=== PATIENT | male | born 1960 | race Caucasian/White ===

== ENCOUNTER 2016-04-05 16:08 | Emergency (ER) | payer MEDICARE, MEDICAID ==
[2016-04-05 16:47] VITALS: BP 133/62
[2016-04-05] MEDS ORDERED: NS 0.9% 1000 ML* 1,000 ML IV ONE (17:29)
--- NOTE | 2016-04-05 19:38 | UC ---
mahendra Mason Timothy, scribed for Mary Griffiths MD on 04/05/16 at 1706 . Abdominal Pain Male HPI - HPI Summary HPI Summary: Chalo Pack is a 55 yo male presenting to [facility] with 10/10 sharp RLQ pain for the past 8 hours with loose stool per [facility] evaluation. He denies N/V , fever, or any other Sx. He denies any medical Hx. - History of Current Complaint Chief Complaint: UCAbdominalPain Stated Complaint: ABDOMINAL PAIN Time Seen by Provider: 04/05/16 17:04 Hx Obtained From: Patient Hx From Patient Unobtainable Due To: Other - limited Hx due to Pt disability Onset/Duration: Sudden Onset, Lasting Hours, Still Present Timing: Constant Severity Initially: Moderate Severity Currently: Moderate Pain Intensity: 8 Pain Scale Used: 0-10 Numeric Location: Discrete At: RLQ Radiates: No Character: Aching Aggravating Factor(s):: Nothing Alleviating Factor(s): Nothing Associated Signs And Symptoms: Positive: Diarrhea. 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 Previously Healthy: No - mentallly handicapped, resident of long-term - Surgical History Surgical History: Yes Surgery Procedure, Year, and Place: cornea transplant - Family History Known Family History: Positive: Unknown - Pt is mentally handicapped and [facility] [employer] lacks FHx. - Social History Occupation: Disabled Lives: Snf Alcohol Use: None Substance Use Type: None Smoking Status (MU): Never Smoked Tobacco Review of Systems Constitutional: Negative Skin: Negative Eyes: Negative ENT: Negative Respiratory: Negative Cardiovascular: Negative Gastrointestinal: Abdominal Pain, Diarrhea Genitourinary: Negative Motor: Negative Neurovascular: Negative Musculoskeletal: Negative Neurological: Negative Psychological: Negative All Other Systems Reviewed And Are Negative: Yes Physical Exam Triage Information Reviewed: Yes Appearance: Well-Appearing, Well-Nourished, Pain Distress - mild Vital Signs: Initial Vital Signs Temp 99.7 F 04/05/16 16:39 Pulse 88 04/05/16 16:39 Resp 20 04/05/16 16:39 BP 133/62 04/05/16 16:39 Pulse Ox 98 04/05/16 16:39 Vital Signs Reviewed: Yes Eyes: Positive: Other: - opaque cornea left. Negative: Discharge ENT: Positive: Hearing grossly normal. Negative: Muffled/hoarse voice Neck: Positive: Supple, Nontender Respiratory: Positive: Lungs clear, Normal breath sounds, No respiratory distress Cardiovascular: Positive: RRR, No Murmur, Pulses Normal, Brisk Capillary Refill Abdomen Description: Positive: No Organomegaly, Soft, Guarding, McBurney's Point Tenderness, Other: - Genital test normal: circumcised, scrotum non-tender , testes are descended. There is an umbilical scar possibly indicating a Hx of umbilical hernia.. Negative: Nontender - RLQ tenderness to palpation, CVA Tenderness (R), CVA Tenderness (L), Distended, Hepatomegaly, Peritoneal Signs, Pulsatile Mass, Splenomegaly Bowel Sounds: Positive: Present Musculoskeletal: Positive: Strength Intact, ROM Intact Neurological: Positive: Alert, Muscle Tone Normal Psychological Exam: Other - Mental disability Skin Exam: Normal Re-Evaluation - Re-Evaluation First Eval Re-Evaluation Time: 17:32 Change: Unchanged Comment: Pt and associate medical director were informed that ambulance will be arriving shortly. Abd Pain Male Course/Dx - Course Course Of Treatment: Chalo Warren is a 55 yo male presnting to [facility] with 10 /10 RLQ abd pain for the past 8 hours. He also has had loose stool per the [facility] [employer] cash [employer], Max, accompanying him. After clinical evaluation, he will be transferred to [facility] by ambulance for further evaluation and treatment. UA results: Color: brown. Character: cloudy. Odor: foul. Bilirubin: negative. Urobilinogen: normal. Ketones: 300mg/dL. Ascorbic Acid: 20mg/dL. Glucose: negative. Protein: 30mg/dL. Blood: negative. pH: 5. Nitrite: negative. Leukocytes: normal. Specific [place]: 1.035 - Differential Dx/Clinical Impression Differential Diagnosis/HQI/PQRI: Appendicitis, Bowel Obstruction, Diverticulitis , Hepatitis, Pancreatitis, Ureteral Stone, Urinary Tract Infection Provider Diagnoses: RLQ abdominal pain. mentally handicapped - Physician Notification/Consults Discussed Patient Care With: 1725 - Rose Marie MONTEMAYOR (emergency medicine) - Discussed Pt condition, MD will see in ED. 172 - [facility] - Described Pt condition, request ambulance for transport to [facility] Instructed by Provider To: MD Will See In ED Discharge - Discharge Plan Condition: Stable Disposition: TRANS HIGHER LVL OF CARE FAC Discharge Disposition Comment: transported to [facility] by ambulance for further evaluation and care Referrals: [facility] [Outside] The documentation as recorded by the mahendra ramírez Timothy accurately reflects the service I personally performed and the decisions made by me, Mary Griffiths MD.
== END 2016-04-05 18:00 | disposition short-term general hospital (02) ==
LOC: UCEAST 16:08
DX: R10.31 Right lower quadrant pain (principal); R19.7 Diarrhea, unspecified; F79 Unspecified intellectual disabilities; H17.9 Unspecified corneal scar and opacity
CPT/HCPCS: 81002; 96360; 99213; G0463

== ENCOUNTER 2016-04-05 18:06 | Observation (INO) | payer MEDICARE, MEDICAID ==
[2016-04-05] MEDS ORDERED: NS 0.9% 1000 ML* 1,000 ML IV SCH (18:30)
[2016-04-05 19:41] LABS: Hematocrit 47 % (42-52); Hemoglobin 15.7 g/dl (14.0-18.0); Mean Corpuscular HGB Conc 33 g/dl (31-36); Mean Corpuscular Hemoglobin 28 pg (27-31); Mean Corpuscular Volume 85 fL (80-94); Mean Platelet Volume 8 um3 (7.4-10.4); Red Blood Count 5.57 10^6/ul (4.0-5.4); Red Cell Distribution Width 14 % (10.5-15)
[2016-04-05 20:07] LABS: Albumin 3.9 g/dL (3.2-5.2); BUN/Creatinine Ratio 15.1 (8-20); C Reactive Protein 2.77 mg/L (< 5.00); Calcium 8.8 mg/dL (8.6-10.3); EGFR African American 118.3 (>60); Globulin 2.3 g/dL (2-4); Total Bilirubin 1.3 mg/dL (0.2-1.0); Total Protein 6.2 g/dL (6.4-8.9)
[2016-04-05] MEDS ORDERED: Iohexol 300* (CONTRAST) 10 ML SDV IV ONE (20:32)
--- NOTE | 2016-04-05 21:37 | RAD ---
INDICATION: Right lower quadrant pain COMPARISON: None TECHNIQUE: Axial source images were obtained from the hemidiaphragms to the symphysis pubis following administration of oral and intravenous contrast. 100 mL Omnipaque 300 was utilized. Coronal and sagittal reconstructed images were acquired. Lung bases: The lung bases are clear. Liver: The liver is normal in size. There are no masses. There is no ductal dilatation. Gallbladder: There are no calcified gallstones. There is no evidence of wall thickening or pericholecystic fluid. Spleen: The spleen is normal in size. There are no masses. Pancreas: There is no focal pancreatic mass or ductal dilatation. Adrenal glands: There is no evidence of adrenal mass. Kidneys: The kidneys are normal in size and position. There are prompt nephrograms and there is prompt excretion bilaterally. There is a 7 mm right renal cortical cyst. There is no evidence of nephrolithiasis. Adenopathy: There is no evidence of adenopathy by size criteria. Fluid collections: There are no free or localized fluid collections. Vessels:There are no significant atherosclerotic changes involving the aorta. There is no focal aneurysm. The iliac vessels are normal in caliber. The IVC appears normal. GI tract: The upper GI tract is unremarkable. There is inflammatory change in the central lower pelvis in the region of the sigmoid colon which is decompressed. There is perienteric inflammatory change. This extends to the right of midline into the periappendiceal region. There are several tiny punctate foci of air which may be extraluminal. There is mild gaseous distention. There is stool in the rectal vault with mild distention. Related to an ileus. Pelvic organs: The prostate and seminal vesicles appear normal Bladder: There are no bladder masses. Abdominal and pelvic soft tissues: There are small bilateral inguinal hernias Osseous structures: There is degenerative change at L5-S1 with a chronic L5 spondylolysis and a grade 1-2 anterolisthesis. There is a scoliotic deformity Other: None IMPRESSION: INFLAMMATORY CHANGE IN THE PELVIS PERHAPS RELATED TO THE SIGMOID COLON OR SECONDARILY INVOLVING THE SIGMOID COLON OR PERHAPS INVOLVING THE APPENDIX. THERE MAY BE A MICROPERFORATION. Findings called to ED
--- NOTE | 2016-04-05 22:57 | ED ---
Sara Mason Janilya, scribed for Ashish Bhatia MD on 04/05/16 at 1832 . Abdominal Pain/Male - HPI Summary HPI Summary: A 55 y/o male came in to [facility] presenting w/ a gradual onset of constant RLQ abd pain starting today. The pain does not radiate to any other location. Pt also denies testicular pain. Pt was sent over from [facility] to rule out appendicitis. Pt is mentally disabled. - History of Current Complaint Chief Complaint: EDAbdPain Stated Complaint: ABD PAIN Time Seen by Provider: 04/05/16 18:12 Hx Obtained From: Patient Onset/Duration: Gradual Onset, Lasting Hours, Still Present Timing: Constant, Lasting Hours Severity Initially: Moderate Severity Currently: Moderate Pain Intensity: 0 Location: Discrete At: RLQ Radiates: No Aggravating Factor(s): Nothing Alleviating Factor(s): Nothing - Allergies/Home Medications Allergies/Adverse Reactions: Allergies Allergy/AdvReac Type Severity Reaction Status Date / Time No Known Allergies Allergy Verified 04/05/16 16:47 PMH/Surg Hx/FS Hx/Imm Hx Endocrine/Hematology History: Denies: Hx Diabetes, Hx Thyroid Disease Cardiovascular History: Denies: Hx Congestive Heart Failure, Hx Deep Vein Thrombosis, Hx Hypertension , Hx Myocardial Infarction, Hx Pacemaker/ICD Respiratory History: Denies: Hx Asthma, Hx Chronic Obstructive Pulmonary Disease (COPD), Hx Lung Cancer, Hx Pneumonia, Hx Pulmonary Embolism GI History: Denies: Hx Gall Bladder Disease, Hx Gastrointestinal Bleed, Hx Ulcer, Hx Urosepsis History: Denies: Hx Kidney Stones, Hx Renal Disease Neurological History: Denies: Hx Dementia, Hx Migraine, Hx Seizures, Hx Transient Ischemic Attacks (TIA) Psychiatric History: Denies: Hx Anxiety, Hx Depression, Hx Schizophrenia, Hx Bipolar Disorder - Surgical History Surgery Procedure, Year, and Place: cornea transplant Infectious Disease History: No Infectious Disease History: Denies: History Other Infectious Disease, Traveled Outside the [place] in Last 30 Days - Family History Known Family History: Positive: Unknown - pt is mentally ill and does not know his FHx - Social History Alcohol Use: None Substance Use Type: Reports: None Smoking Status (MU): Never Smoked Tobacco Review of Systems Positive: Abdominal Pain - RLQ Negative: dysuria All Other Systems Reviewed And Are Negative: Yes Physical Exam Triage Information Reviewed: Yes Vital Signs On Initial Exam: Initial Vitals Temp Pulse Resp BP Pulse Ox 99.1 F 88 20 130/67 94 04/05/16 18:11 04/05/16 18:11 04/05/16 18:11 04/05/16 18:11 04/05/16 18:11 Vital Signs Reviewed: Yes Appearance: Positive: Well-Appearing, No Pain Distress Skin: Positive: Warm, Skin Color Reflects Adequate Perfusion, Dry Head/Face: Positive: Normal Head/Face Inspection Eyes: Positive: EOMI, ONOFRE ENT: Positive: Normal ENT inspection Neck: Positive: Supple, Nontender Respiratory/Lung Sounds: Positive: Clear to Auscultation, Breath Sounds Present Cardiovascular: Positive: RRR Abdomen Description: Positive: Soft. Negative: Nontender - RLQ tenderness, no rebound Bowel Sounds: Positive: Hypoactive Male Genital Exam: Positive: inguinal tenderness - right sided, other - no penile lesion, no testicular swelling. Negative: testicular tenderness (R), testicular tenderness (L) Musculoskeletal: Positive: Normal, Strength/ROM Intact Neurological: Positive: Normal, Sensory/Motor Intact, Alert, Oriented to Person Place, Time Psychiatric: Positive: Affect/Mood Appropriate - Moore Coma Scale Coma Scale Total: 15 Diagnostics - Vital Signs Vital Signs Temp Pulse Resp BP Pulse Ox 04/05/16 18:11 99.1 F 88 20 130/67 94 - Laboratory Lab Results: Lab Results 04/05/16 04/05/16 04/05/16 Range/Units 19:16 19:16 19:16 WBC 12.0 H (3.5-10.8) 10^3/ul RBC 5.57 H (4.0-5.4) 10^6/ul Hgb 15.7 (14.0-18.0) g/dl Hct 47 (42-52) % MCV 85 (80-94) fL MCH 28 (27-31) pg MCHC 33 (31-36) g/dl RDW 14 (10.5-15) % Plt Count 127 L (150-450) 10^3/ul MPV 8 (7.4-10.4) um3 Neut % (Auto) 91.1 H (38-83) % Lymph % (Auto) 4.6 L (25-47) % [place] % (Auto) 3.7 (1-9) % Eos % (Auto) 0.2 (0-6) % Baso % (Auto) 0.4 (0-2) % Absolute Neuts (auto) 11.0 H (1.5-7.7) 10^3/ul Absolute Lymphs (auto) 0.6 L (1.0-4.8) 10^3/ul Absolute Monos (auto) 0.4 (0-0.8) 10^3/ul Absolute Eos (auto) 0 (0-0.6) 10^3/ul Absolute Basos (auto) 0 (0-0.2) 10^3/ul Absolute Nucleated RBC 0 10^3/ul Nucleated RBC % 0 INR (Anticoag Therapy) 1.04 (0.89-1.11) Sodium 138 (133-145) mmol/L Potassium 4.0 (3.5-5.0) mmol/L Chloride 107 (101-111) mmol/L Carbon Dioxide 25 (22-32) mmol/L Anion Gap 6 (2-11) mmol/L BUN 13 (6-24) mg/dL Creatinine 0.86 (0.67-1.17) mg/dL Est GFR ( Amer) 118.3 (>60) Est GFR (Non-Af Amer) 92.0 (>60) BUN/Creatinine Ratio 15.1 (8-20) Glucose 103 H (70-100) mg/dL Lactic Acid (0.5-2.0) mmol/L Calcium 8.8 (8.6-10.3) mg/dL Total Bilirubin 1.30 H (0.2-1.0) mg/dL AST 13 (13-39) U/L ALT 10 (7-52) U/L Alkaline Phosphatase 40 (34-104) U/L C-Reactive Protein 2.77 (< 5.00) mg/L Total Protein 6.2 L (6.4-8.9) g/dL Albumin 3.9 (3.2-5.2) g/dL Globulin 2.3 (2-4) g/dL Albumin/Globulin Ratio 1.7 (1-3) Lipase 26 (11.0-82.0) U/L 04/05/16 Range/Units 19:16 WBC (3.5-10.8) 10^3/ul RBC (4.0-5.4) 10^6/ul Hgb (14.0-18.0) g/dl Hct (42-52) % MCV (80-94) fL MCH (27-31) pg MCHC (31-36) g/dl RDW (10.5-15) % Plt Count (150-450) 10^3/ul MPV (7.4-10.4) um3 Neut % (Auto) (38-83) % Lymph % (Auto) (25-47) % [place] % (Auto) (1-9) % Eos % (Auto) (0-6) % Baso % (Auto) (0-2) % Absolute Neuts (auto) (1.5-7.7) 10^3/ul Absolute Lymphs (auto) (1.0-4.8) 10^3/ul Absolute Monos (auto) (0-0.8) 10^3/ul Absolute Eos (auto) (0-0.6) 10^3/ul Absolute Basos (auto) (0-0.2) 10^3/ul Absolute Nucleated RBC 10^3/ul Nucleated RBC % INR (Anticoag Therapy) (0.89-1.11) Sodium (133-145) mmol/L Potassium (3.5-5.0) mmol/L Chloride (101-111) mmol/L Carbon Dioxide (22-32) mmol/L Anion Gap (2-11) mmol/L BUN (6-24) mg/dL Creatinine (0.67-1.17) mg/dL Est GFR ( Amer) (>60) Est GFR (Non-Af Amer) (>60) BUN/Creatinine Ratio (8-20) Glucose (70-100) mg/dL Lactic Acid 0.8 (0.5-2.0) mmol/L Calcium (8.6-10.3) mg/dL Total Bilirubin (0.2-1.0) mg/dL AST (13-39) U/L ALT (7-52) U/L Alkaline Phosphatase (34-104) U/L C-Reactive Protein (< 5.00) mg/L Total Protein (6.4-8.9) g/dL Albumin (3.2-5.2) g/dL Globulin (2-4) g/dL Albumin/Globulin Ratio (1-3) Lipase (11.0-82.0) U/L Result Diagrams: 04/05/16 19:16 04/05/16 19:16 Lab Statement: Any lab studies that have been ordered have been reviewed, and results considered in the medical decision making process. - CT abd/pel CT Interpretation: Positive (See Comments) - IMPRESSION: INFLAMMATORY CHANGE IN THE PELVIS PERHAPS RELATED TO THE SIGMOID COLON OR SECONDARILY INVOLVING THE SIGMOID COLON OR PERHAPS INVOLVING THE APPENDIX. THERE MAY BE A MICROPERFORATION. CT Interpretation Completed By: Radiologist Abdominal Pain Fem Course/Dx - Course Assessment/Plan: CT SHOWS INFLAMMATION IN THE PELVIS. DR MALONE, SURGERY, SAW PATIENT IN THE ED AND ADMITTED HIM IN STABLE CONDITION. - Diagnoses Provider Diagnoses: Abdominal pain - Provider Notifications Discussed Care Of Patient With: Dr. Malone (surgery) at 215: discussed pt's CC and current complaint. Discharge - Discharge Plan Condition: Stable Disposition: ADMITTED TO [facility] Referrals: No Primary Care Phys,NOPCP [Primary Care Provider] - The documentation as recorded by the Sara ramírez Janilya accurately reflects the service I personally performed and the decisions made by me, Ashish Bhatia MD.
[2016-04-05] MEDS ORDERED: HYDROmorphone INJ* 1 MG/ML CARPUJECT SYRINGE IV PRN (23:04)
[2016-04-05] MEDS ORDERED: Piperac/Tazob 3.375 gm in NS* 3.375 GM/100 ML BAG IVPB ONE ×2 (23:19→23:45)
--- NOTE | 2016-04-06 04:33 | HP ---
CC: [facility]; [facility] HISTORY AND PHYSICAL: DATE OF ADMISSION: 04/05/2016. HISTORY OF PRESENT ILLNESS: I was contacted by the emergency room staff to evaluate Chalo Pack, a 55-year-old gentleman with mild intellectual disability, who presents to [facility] with staff from [facility] with a complaint of a one-day history of right lower quadrant pain. The patient has been with one of the care providers since 4 o'clock when he was brought to [facility] and then transferred over to the emergency room. According to report, the patient complained of right lower quadrant pain, nausea, but without vomiting. No fevers or chills. Currently, the patient is not complaining of any abdominal pain. He has appetite and no nausea. He describes frequent constipation for which he takes over-the- counter medications. He is pleasant and answers questions appropriately. His last bowel movement was this morning. The patient denies any previous similar symptoms. PAST MEDICAL HISTORY: Mild intellectual disability, sclerosis, psoriasis, cataract, and chronic dry eyes. PAST SURGICAL HISTORY: Varicocele, no abdominal surgeries. MEDICATION LISTS: Reviewed, and only includes [id number] medications or topical. ALLERGIES: No known drug allergies. He does not have a primary care physician. SOCIAL HISTORY: He does not smoke or drink. He worked regularly as a roofing laborer. FAMILY HISTORY: No history of IBD or appendicitis. REVIEW OF SYSTEMS: Somewhat difficult. No nausea is described. No headache, no shortness of breath or chest pain, no dysuria. Good exercise tolerance. PHYSICAL EXAM: GENERAL: He is alert and oriented x3. He is in no apparent distress. VITAL SIGNS: Temperature 99.1, blood pressure 130/67, heart rate 88, O2 sat 94 on room air, and respirations 20. These vitals matched his time at [facility] as well. HEENT: Normocephalic, atraumatic. Sclerae anicteric. Mucous membranes are moist. NECK: No lymphadenopathy. LUNGS: Clear. ABDOMEN: Soft, distended, tympanic, nontender with the exception of a small area just below the umbilicus. Negative rebound, positive tympany, positive bowel sounds. RECTAL: Not performed. No CVA tenderness. EXTREMITIES: No cyanosis, clubbing or edema. Negative psoas sign. DIAGNOSTIC STUDIES / LABORATORY DATA: Labs reviewed showed white count of 12, H and H of 16/47. He does have a left shift. Metabolic panel within normal limits. Mildly elevated bilirubin. He also underwent a CT scan of the abdomen and pelvis. These images as well as the report were reviewed, and do some certain inflammatory changes in the pelvis; unclear if this is related to the sigmoid colon versus appendix. No free fluid, but there is a foci of air that is questionably extraluminal. There is significant amount of stool along with colon with mild distension of the rectum. IMPRESSION: Lower abdominal pain according to report, but not complaining of any now. Does have some distension and tympany, but no significant tenderness on abdominal exam. No evidence of acute abdomen at this time. Inflammation may be secondary to appendicitis versus diverticulitis; and I feel, at this time , I do not wish to take patient to the OR since he is feeling better if there is possibility that we may find diverticulitis. I did review his colonoscopy from 2009; the sigmoid colon was tortuous and difficult to navigate for the endoscopist but without diverticula. PLAN: Plan will be for n.p.o., IV fluids, antibiotics, and serial abdominal exam, with repeat labs in the morning. If the patient shows significant improvement, we'll look towards possible discharge home on antibiotics versus diagnostic laparoscopy. I will reach out to the patient's father and explain it to him; I did explain it to the patient who I believe understands this plan. [id number]/[facility] #: [id number] MTDD
[2016-04-06 04:59] LABS: Hematocrit 43 % (42-52); Hemoglobin 14.3 g/dl (14.0-18.0); Mean Corpuscular HGB Conc 34 g/dl (31-36); Mean Corpuscular Hemoglobin 28 pg (27-31); Mean Corpuscular Volume 85 fL (80-94); Mean Platelet Volume 8 um3 (7.4-10.4); Red Blood Count 5.03 10^6/ul (4.0-5.4); Red Cell Distribution Width 14 % (10.5-15); White Blood Count 6.7 10^3/ul (3.5-10.8)
[2016-04-06 05:15] LABS: Albumin 3.5 g/dL (3.2-5.2); BUN/Creatinine Ratio 11.7 (8-20); Calcium 8.3 mg/dL (8.6-10.3); EGFR African American 106.8 (>60); Globulin 1.8 g/dL (2-4); Potassium 3.7 mmol/L (3.5-5.0); Total Bilirubin 1.4 mg/dL (0.2-1.0); Total Protein 5.3 g/dL (6.4-8.9)
[2016-04-06] MEDS: Piperac/Tazob 3.375 gm in NS* 3.375 GM/100 ML BAG IVPB SCH ×2 (05:19→12:07)
--- NOTE | 2016-04-06 11:25 | PN ---
Progress Note - Progress Note SOAP: Subjective: Pt seen and examined. Fells good. No complaints. Positive appetite. Objective: af vss lungs clear b/l abdo: soft/ND today. NT hypoactive BS no calf tenderness labs noted Assessment: Abdominal pain resolving. Plan: advance diet d/c planning No OR
[2016-04-06 16:35] VITALS: BP 126/72
--- NOTE | 2016-04-07 03:15 | DS ---
DISCHARGE SUMMARY: DATE OF ADMISSION: 04/05/16 DATE OF DISCHARGE: 04/06/16 HOSPITAL COURSE: Please see admission history and physical for admission details. The patient was seen in the emergency department by Dr. Malone on the evening of 04/05/16 after a 1-day history of right lower quadrant pain. He did well overnight and as of the morning of discharge, had no complaints regarding abdominal pain and no significant tenderness on exam. Plan was for advancement of diet and probable discharge. A bit later in the day, the nurse informed me that his left thumb was significantly swollen and tender and upon exam, he was found to have what clinically was consistent with a paronychia of the left thumb medial aspect at the base of the nail with associated erythema, tenderness , and fluctuance. DESCRIPTION OF PROCEDURE: After explaining the procedure and obtaining signed consent from the father, a digital block was performed with 2% lidocaine (total of 5 cc). The paronychia was incised with moderate cloudy drainage expressed. The wound was irrigated with saline and a short wick of 0.25 inch of iodoform packing was placed. The wound was dressed and the patient will be discharged to his residence at [facility]. He will return to our office tomorrow for wound check and removal of the packing. ALBINA DIAZ CC: [facility]; [facility]* [id number]/[facility] #: [id number] MTDD
== END 2016-04-06 16:30 | disposition home or self-care (01) ==
LOC: ED 18:06 → SSU 23:28
PROVIDERS: ADMIT Surgery; ATTEND Surgery
PROC: 0H9GXZZ Drainage of Left Hand Skin, External Approach (ICD-10-PCS; principal; 2016-04-05)
DX: R10.31 Right lower quadrant pain (principal); L03.012 Cellulitis of left finger; L02.512 Cutaneous abscess of left hand; F70 Mild intellectual disabilities; N28.1 Cyst of kidney, acquired; K52.9 Noninfective gastroenteritis and colitis, unspecified; R19.7 Diarrhea, unspecified; H17.9 Unspecified corneal scar and opacity
CPT/HCPCS: 36415; 74177; 80053; 81002; 83605; 83690; 85025; 85610; 86140; 96360; 96361; 96365; 96366; 96375; 99213; 99285; G0378; G0463; J1170; J2543; Q9967

== ENCOUNTER 2016-11-13 17:00 | Observation (INO) | payer MEDICARE, MEDICAID ==
[2016-11-13] MEDS ORDERED: Aspirin Low Dose CHEW TAB* 81 MG PO ONE (17:18)
[2016-11-13] MEDS ORDERED: NS 0.9% 1000 ML* 1,000 ML IV ONE (17:18)
[2016-11-13] MEDS ORDERED: Diltiazem IV* 5 MG/ML 5 ML VIAL (for loading dose/IV Push) (25 MG) IV SLOW PU ONE ×2 (17:24→18:35)
[2016-11-13] MEDS ORDERED: Diltiazem IV VIAL* 125 MG/25 ML VIAL ONE (17:26)
[2016-11-13 17:51] LABS: Hematocrit 49 % (42-52); Hemoglobin 16.8 g/dl (14.0-18.0); Mean Corpuscular HGB Conc 34 g/dl (31-36); Mean Corpuscular Hemoglobin 29 pg (27-31); Mean Corpuscular Volume 86 fL (80-94); Mean Platelet Volume 8 um3 (7.4-10.4); Red Blood Count 5.77 10^6/ul (4.0-5.4); Red Cell Distribution Width 14 % (10.5-15); White Blood Count 8.4 10^3/ul (3.5-10.8)
--- NOTE | 2016-11-13 18:21 | RAD ---
INDICATION: Palpitations. COMPARISON: Comparison is made with prior chest 3 study from May 11, 2008. TECHNIQUE: A portable view of the chest was obtained. FINDINGS: Cardiac and mediastinal contours appear to be within normal limits. The lungs are clear. No pleural effusion is seen. There is a moderate dorsal scoliosis convex toward the left side. IMPRESSION: NO EVIDENCE FOR ACUTE DISEASE.
[2016-11-13 18:22] LABS: Urine Bilirubin Negative (Negative); Urine Glucose Negative (Negative); Urine Nitrite Negative (Negative)
[2016-11-13 18:23] LABS: Albumin 4.1 g/dL (3.2-5.2); BUN/Creatinine Ratio 17.5 (8-20); Calcium 9.5 mg/dL (8.6-10.3); EGFR African American 128.1 (>60); EGFR Non-African American 99.6 (>60); Globulin 2.8 g/dL (2-4); Magnesium 2.1 mg/dL (1.9-2.7); Potassium 4.2 mmol/L (3.5-5.0); Total Bilirubin 0.7 mg/dL (0.2-1.0); Total Protein 6.9 g/dL (6.4-8.9)
[2016-11-13 18:24] LABS: TSH (Thyroid Stimulating Horm) 3.13 mcIU/mL (0.34-5.60)
[2016-11-13] MEDS ORDERED: Rivaroxaban TAB(*) 10 MG PO ONE (19:01)
[2016-11-13] MEDS ORDERED: Acetaminophen TAB* 325 MG PO PRN (19:02)
[2016-11-13] MEDS ORDERED: Metoprolol Tartrate IV* 1 MG/ML 5 ML VIAL IV PRN (19:14)
[2016-11-13] MEDS: Diltiazem TAB* 30 MG PO SCH (21:19)
[2016-11-13] MEDS: Triamcinolone 0.025% OINT * 15 GM TUBE TOPICAL SCH (21:20)
--- NOTE | 2016-11-14 01:37 | HP ---
ADMISSION HISTORY AND PHYSICAL: DATE OF ADMISSION: 11/13/2016. PRIMARY CARE PROVIDER: [facility], previously Dr. Schmid. HEALTHCARE PROXY: His father. CODE STATUS: Full. CHIEF COMPLAINT: Atrial fibrillation. HISTORY OF PRESENT ILLNESS: This is a 56-year-old man with minimal known past medical history including lagm-kc-cdayyuom intellectual disability, resides at the [facility] who has recently been in his usual state of health, was home with his father, which he frequently goes from the [facility] over the weekend , was noted to have had a cough, which was nonproductive. [facility] called to check in on him and today, he was noted to be sleeping at about 9 a.m., which is unusual, so they made him follow up with his primary care provider. When he was seen in the morning, he felt "low-montaño" and was brought to the primary care provider and was found to be in atrial fibrillation with rapid ventricular response. So, he was referred to the emergency room. The patient and participant from the [facility] deny any recent fevers, chills. No nausea , vomiting. He has denied any chest pain, shortness of breath, palpitations. In the emergency room, he received diltiazem 20 mg IV as a push with improvement in his heart rate from 143 to 80s or 90s, which are not recorded in our EMR, however, reported by nurse at bedside. When seen by this author, heart rate had climbed back up to stay in 120s. PAST MEDICAL HISTORY: Bsyn-xj-xcsvculs intellectual disability, history of cataract transplant, variceal surgery, dermatitis, chronic dry eyes, scoliosis, and kyphoscoliosis. MEDICATIONS: 1. Acetaminophen 325 mg 2 tabs every 4 hours as needed for pain or fevers. 2. Guiatuss 10 mL every 4 hours as needed for cough. 3. Pepto-Bismol 10 mL every 4 hours as needed. 4. Bacitracin with zinc applied to any open wound twice daily. 5. Dandruff shampoo daily. 6. Cetaphil cream daily. 7. Artificial tears 1 drop in right eye twice daily. 8. Ibuprofen 400 mg every 6 hours as needed for pain. 9. Ketoconazole 2% on face as needed. 10. Pimecrolimus 1% daily to the face. 11. Triamcinolone ointment 0.1% to affected areas on leg twice daily. ALLERGIES: No known drug allergies. FAMILY HISTORY: Father has atrial fibrillation. SOCIAL HISTORY: Lives in the [facility]. No tobacco. Has approximately 1 beer when he is home with his father. No other illicit's. REVIEW OF SYSTEMS: As per HPI, otherwise all other systems negative. PHYSICAL EXAMINATION GENERAL: Sitting up in bed, interactive, pleasant, in no apparent distress. VITAL SIGNS: In the emergency room when seen by this author, heart rate of 120 ; blood pressure of 132/87; respiratory rate of 16; T-max in the emergency room 97.8, 97% on room air. HEENT: Oropharynx is clear. Has moist mucous membranes. Sclerae anicteric. LUNGS: Clear to auscultation throughout. HEART: Has irregularly irregular heart rate. No murmurs, rubs, or gallops. ABDOMEN: Soft, nontender, and nondistended. EXTREMITIES: Warm and well perfused and his left leg and pretibial region has an area of plaque-like erythema. NEURO: He is A and O x3. DIAGNOSTIC STUDIES/LAB DATA: Labs reviewed: Hemoglobin 16.8, white blood cell count 8.4, platelets 165. Sodium 139, potassium 4.2, chloride 104, BUN of 14, creatinine 0.8. Total magnesium 2.1. Troponin I 0.00. BNP 47. TSH 3.13. Chest x-ray, impression: No active cardiopulmonary disease. Moderate dorsal scoliosis, convex towards the left side. EKG on presentation: Atrial fibrillation, ventricular rate 157. Normal limit of axis. Normal R-wave progression. 2-mm ST depressions in V3 through V4, which resolved with rate improved to 100 beats per minute. ASSESSMENT AND PLAN: A 56-year-old man presenting with: 1. Atrial fibrillation and rapid ventricular response, etiology remains unclear. I have tried to contact father, Chalo Gonzales, at [phone] to discuss long-term anticoagulation options. At this time, we will give 1 dose of Xarelto , reevaluate tomorrow. I gave him another dose of Cardizem 20 mg IV to control his heart rate to less than 100 and additionally start Cardizem 30 mg p.o. q.6 hours. Metoprolol 5 mg q.6 hours for overnight heart rate staying greater than 120. Transthoracic echocardiogram tomorrow. I hope that he converts to avoid a transthoracic echocardiogram, potential PAYTON, which may be complicated both by inability to consent as well as his kyphoscoliosis. 2. Dry eyes. Continue home remedies. 3. Dermatitis. Continue with steroid cream. 4. DVT prophylaxis. Trevor. [id number]/[facility] #: [id number] MTDD
[2016-11-14] MEDS: Diltiazem TAB* 30 MG PO SCH ×2 (02:30→08:28)
[2016-11-14 05:04] LABS: HDL Cholesterol 31.3 mg/dL
--- NOTE | 2016-11-14 07:40 | ED ---
Neela Mason Alfonso, scribed for Dwaine Youngblood MD on 11/13/16 at 1717 . Palpitations / Dysrhythmia - HPI Summary HPI Summary: This patient is a 56 year old M BIBA to [facility] accompanied by female with a chief complaint of palpitations since earlier today. The patient rates the pain 0/10 in severity. Symptoms aggravated by nothing. Symptoms alleviated by nothing. Patient reports fatigue, cough, and weakness. Patient denies CP, and SOB. FHx includes A-Fib. - History of Current Complaint Chief Complaint: EDDysrhythmPalp Hx Obtained From: Patient Onset/Duration: Sudden Onset, Lasting Hours, Still Present Timing: Constant Character: Fast Aggravating: Nothing Alleviating: Nothing - Allergy/Home Medications Allergies/Adverse Reactions: Allergies Allergy/AdvReac Type Severity Reaction Status Date / Time No Known Allergies Allergy Verified 11/13/16 17:10 Home Medications: Home Medications Acetaminophen 650 mg PO Q4HR PRN 11/13/16 [History Confirmed 11/13/16] Guiatuss 100 mg PO Q4HR PRN 11/13/16 [History Confirmed 11/13/16] Ibuprofen 200 mg PO Q6HR PRN 11/13/16 [History Confirmed 11/13/16] Ketoconazole 2 % TOPICAL DAILY 11/13/16 [History Confirmed 11/13/16] Pepto Bismol 10 ml PO Q4HR PRN 11/13/16 [History Confirmed 11/13/16] Triamcinolone 0.1 % TOPICAL BID 11/13/16 [History Confirmed 11/13/16] PMH/Surg Hx/FS Hx/Imm Hx Endocrine/Hematology History: Denies: Hx Diabetes, Hx Thyroid Disease Cardiovascular History: Denies: Hx Congestive Heart Failure, Hx Deep Vein Thrombosis, Hx Hypertension , Hx Myocardial Infarction, Hx Pacemaker/ICD Respiratory History: Denies: Hx Asthma, Hx Chronic Obstructive Pulmonary Disease (COPD), Hx Lung Cancer, Hx Pneumonia, Hx Pulmonary Embolism GI History: Denies: Hx Gall Bladder Disease, Hx Gastrointestinal Bleed, Hx Ulcer, Hx Urosepsis History: Denies: Hx Kidney Stones, Hx Renal Disease Sensory History: Reports: Hx Cataracts Opthamlomology History: Reports: Hx Cataracts Neurological History: Denies: Hx Dementia, Hx Migraine, Hx Seizures, Hx Transient Ischemic Attacks (TIA) Psychiatric History: Denies: Hx Anxiety, Hx Depression, Hx Schizophrenia, Hx Bipolar Disorder - Surgical History Surgery Procedure, Year, and Place: cornea transplant Infectious Disease History: No Infectious Disease History: Denies: History Other Infectious Disease, Traveled Outside the [place] in Last 30 Days - Family History Known Family History: Positive: Other - Negative A-Fib. - Social History Alcohol Use: None Substance Use Type: Reports: None Smoking Status (MU): Never Smoked Tobacco Review of Systems Positive: Palpitations. Negative: Chest Pain Positive: Cough. Negative: Shortness Of Breath Neurological: Other - weakness and fatigue All Other Systems Reviewed And Are Negative: Yes Physical Exam - Summary Physical Exam Summary: VITAL SIGNS: Reviewed. GENERAL: Patient is a well-developed and nourished male who is lying comfortable in the stretcher. Patient is not in any acute respiratory distress. HEAD AND FACE: No signs of trauma. No ecchymosis, hematomas or skull depressions. No sinus tenderness. EYES: PERRLA, EOMI x 2, No injected conjunctiva, no nystagmus. EARS: Hearing grossly intact. Ear canals and tympanic membranes are within normal limits. MOUTH: Oropharynx within normal limits. NECK: Supple, trachea is midline, no adenopathy, no JVD, no carotid bruit, no c- spine tenderness, neck with full ROM. CHEST: Symmetric, no tenderness at palpation LUNGS: Clear to auscultation bilaterally. No wheezing or crackles. CVS: IRR. Tachycardia. S1 and S2 present, no murmurs or gallops appreciated. ABDOMEN: Soft, non-tender. No signs of distention. No rebound no guarding, and no masses palpated. Bowel sounds are normal. EXTREMITIES: FROM in all major joints, no edema, no cyanosis or clubbing. NEURO: Alert and oriented x 3. No acute neurological deficits. Speech is normal and follows commands. SKIN: Dry and warm Triage Information Reviewed: Yes Vital Signs On Initial Exam: Initial Vitals BP 132/92 11/13/16 17:03 Vital Signs Reviewed: Yes - Alexander Coma Scale Coma Scale Total: 15 Diagnostics - Vital Signs Vital Signs Temp Pulse Resp BP Pulse Ox 11/13/16 17:09 97.8 F 138 20 132/92 97 11/13/16 17:05 134 11 98 11/13/16 17:03 132/92 - Laboratory Lab Results: Lab Results 11/13/16 11/13/16 11/13/16 Range/Units 17:30 17:30 17:30 WBC 8.4 (3.5-10.8) 10^3/ul RBC 5.77 H (4.0-5.4) 10^6/ul Hgb 16.8 (14.0-18.0) g/dl Hct 49 (42-52) % MCV 86 (80-94) fL MCH 29 (27-31) pg MCHC 34 (31-36) g/dl RDW 14 (10.5-15) % Plt Count 165 (150-450) 10^3/ul MPV 8 (7.4-10.4) um3 Neut % (Auto) 77.7 (38-83) % Lymph % (Auto) 15.2 L (25-47) % Irion % (Auto) 5.2 (1-9) % Eos % (Auto) 1.4 (0-6) % Baso % (Auto) 0.5 (0-2) % Absolute Neuts (auto) 6.6 (1.5-7.7) 10^3/ul Absolute Lymphs (auto) 1.3 (1.0-4.8) 10^3/ul Absolute Monos (auto) 0.4 (0-0.8) 10^3/ul Absolute Eos (auto) 0.1 (0-0.6) 10^3/ul Absolute Basos (auto) 0 (0-0.2) 10^3/ul Absolute Nucleated RBC 0 10^3/ul Nucleated RBC % 0 APTT (26.0-36.3) seconds Sodium 139 (133-145) mmol/L Potassium 4.2 (3.5-5.0) mmol/L Chloride 104 (101-111) mmol/L Carbon Dioxide 26 (22-32) mmol/L Anion Gap 9 (2-11) mmol/L BUN 14 (6-24) mg/dL Creatinine 0.80 (0.67-1.17) mg/dL Est GFR ( Amer) 128.1 (>60) Est GFR (Non-Af Amer) 99.6 (>60) BUN/Creatinine Ratio 17.5 (8-20) Glucose 98 (70-100) mg/dL Calcium 9.5 (8.6-10.3) mg/dL Magnesium 2.1 (1.9-2.7) mg/dL Total Bilirubin 0.70 (0.2-1.0) mg/dL AST 14 (13-39) U/L ALT 17 (7-52) U/L Alkaline Phosphatase 40 (34-104) U/L CK-MB (CK-2) 2.8 (0.6-6.3) ng/mL Troponin I 0.00 (<0.04) ng/mL B-Natriuretic Peptide 47 ( - 100) pg/mL Total Protein 6.9 (6.4-8.9) g/dL Albumin 4.1 (3.2-5.2) g/dL Globulin 2.8 (2-4) g/dL Albumin/Globulin Ratio 1.5 (1-3) TSH 3.13 (0.34-5.60) mcIU/mL Urine Color Urine Appearance Urine pH (5-9) Ur Specific Hemphill (1.010-1.030) Urine Protein (Negative) Urine Ketones (Negative) Urine Blood (Negative) Urine Nitrate (Negative) Urine Bilirubin (Negative) Urine Urobilinogen (Negative) Ur Leukocyte Esterase (Negative) Urine Glucose (Negative) 11/13/16 11/13/16 Range/Units 17:30 18:10 WBC (3.5-10.8) 10^3/ul RBC (4.0-5.4) 10^6/ul Hgb (14.0-18.0) g/dl Hct (42-52) % MCV (80-94) fL MCH (27-31) pg MCHC (31-36) g/dl RDW (10.5-15) % Plt Count (150-450) 10^3/ul MPV (7.4-10.4) um3 Neut % (Auto) (38-83) % Lymph % (Auto) (25-47) % Irion % (Auto) (1-9) % Eos % (Auto) (0-6) % Baso % (Auto) (0-2) % Absolute Neuts (auto) (1.5-7.7) 10^3/ul Absolute Lymphs (auto) (1.0-4.8) 10^3/ul Absolute Monos (auto) (0-0.8) 10^3/ul Absolute Eos (auto) (0-0.6) 10^3/ul Absolute Basos (auto) (0-0.2) 10^3/ul Absolute Nucleated RBC 10^3/ul Nucleated RBC % APTT 31.8 (26.0-36.3) seconds Sodium (133-145) mmol/L Potassium (3.5-5.0) mmol/L Chloride (101-111) mmol/L Carbon Dioxide (22-32) mmol/L Anion Gap (2-11) mmol/L BUN (6-24) mg/dL Creatinine (0.67-1.17) mg/dL Est GFR ( Amer) (>60) Est GFR (Non-Af Amer) (>60) BUN/Creatinine Ratio (8-20) Glucose (70-100) mg/dL Calcium (8.6-10.3) mg/dL Magnesium (1.9-2.7) mg/dL Total Bilirubin (0.2-1.0) mg/dL AST (13-39) U/L ALT (7-52) U/L Alkaline Phosphatase (34-104) U/L CK-MB (CK-2) (0.6-6.3) ng/mL Troponin I (<0.04) ng/mL B-Natriuretic Peptide ( - 100) pg/mL Total Protein (6.4-8.9) g/dL Albumin (3.2-5.2) g/dL Globulin (2-4) g/dL Albumin/Globulin Ratio (1-3) TSH (0.34-5.60) mcIU/mL Urine Color Yellow Urine Appearance Clear Urine pH 6.0 (5-9) Ur Specific Hemphill 1.015 (1.010-1.030) Urine Protein Negative (Negative) Urine Ketones Trace H (Negative) Urine Blood Negative (Negative) Urine Nitrate Negative (Negative) Urine Bilirubin Negative (Negative) Urine Urobilinogen Negative (Negative) Ur Leukocyte Esterase Negative (Negative) Urine Glucose Negative (Negative) Result Diagrams: 11/13/16 17:30 11/13/16 17:30 Lab Statement: Any lab studies that have been ordered have been reviewed, and results considered in the medical decision making process. - Radiology CXR Radiology Interpretation Completed By: Radiologist - NO EVIDENCE FOR ACUTE DISEASE. ED physician has reviewed this radiology report and agrees. - EKG 1710 Cardiac Rate: Tachycardia - BPM 157 EKG Rhythm: Atrial Fibrillation EKG Interpretation: Normal axis 1739 Cardiac Rate: Tachycardia - BPM 100 EKG Rhythm: Atrial Fibrillation EKG Interpretation: Normal axis Course/Dx - Course Assessment/Plan: This patient is a 56 year old M BIBA to [facility] accompanied by female with a chief complaint of palpitations since earlier today. The patient rates the pain 0/10 in severity. Symptoms aggravated by nothing. Symptoms alleviated by nothing. Patient reports fatigue, cough, and weakness. Patient denies CP, and SOB. FHx includes A-Fib. An EKG reveals A-fib and tachycardia. CXR reveals NO EVIDENCE FOR ACUTE DISEASE. ED physician has reviewed this radiology report and agrees. Test results with no significant abnormalities. Urinalysis negative for UTI. In the ED course the patient came in with A-Fib with RVR. He was given fluids and 20 mg of Cardizem. He has a new onset of A-fib , therefore I consulted Dr. Guadalupe (hospitalist) who agrees to admit. The patient is alert and oriented x3. - Diagnoses Provider Diagnoses: Atrial fibrillation with RVR - Physician Notifications Discussed Care Of Patient With: Deep Guadalupe Time Discussed With Above Provider: 17:57 Instructed by Provider To: Other - Consulted Dr. Guadalupe (hospitalist) who agrees to admit. - Critical Care Time Critical Care Time: 30-74 min Discharge - Discharge Plan Condition: Stable Disposition: ADMITTED TO [facility] The documentation as recorded by the Neela ramírez Alfonso accurately reflects the service I personally performed and the decisions made by me, Dwaine Youngblood MD.
[2016-11-14] MEDS: Triamcinolone 0.025% OINT * 15 GM TUBE TOPICAL SCH (09:00)
[2016-11-14] MEDS ORDERED: Artificial Tears* 15 ML BTL BOTH EYES SCH (09:00)
--- NOTE | 2016-11-14 11:22 | ECHO ---
Patient: KRYSTA DUQUE [facility] Rec#: [id number] : 1960 Date: 11/14/2016 Age: 56y Height: 165.1 cm / 65.0 in Weight: 68.95 kg / 152.0 lbs Sex: M BSA: 1.76 Room#: [facility] Admit Date#: 11/13/2016 Type: Inpatient Referring: Deep Guadalupe MD Reading: Kyle Key MD Hemodialysis Lab Technician: Halina [facility] Tran[facility]horacic Echocardiogram Indication: New Atrial Fibrillation BP: 116/67 HR: 71 Rhythm: NSR Findings History: Corneal transplant, mild-moderate mental disability. Technical Comments: The study quality is good. Completed at 1015. Left Ventricle: The left ventricular chamber size is normal. There is no left ventricular hypertrophy. There is a focal wall motion abnormality present.Cannot rule out subtle hypokinesis of the most proximal portion of the low posterolateral wall. (not seen well). There is normal left ventricular systolic function. The estimated ejection fraction is 55-60%. Visually estimated LVEF is 55 %. There is no consistent Doppler evidence of clinically significant diastolic dysfunction. Left Atrium: The left atrial chamber size is normal. Right Ventricle: Moderator Band present. The right ventricle is mildly dilated. The right ventricular global systolic function is normal. Right Atrium: The right atrial cavity size is normal. Aortic Valve: The aortic valve is trileaflet. The aortic valve leaflets are moderately thickened. There is trace to mild aortic regurgitation. There is no evidence of aortic stenosis. Mitral Valve: There is mitral annular calcification. The mitral valve leaflets are moderately thickened. There is mild mitral valve prolapse. There is mild mitral regurgitation. There is no evidence of mitral stenosis. Tricuspid Valve: The tricuspid valve leaflets are normal. There is trace to mild tricuspid regurgitation. The right ventricular systolic pressure is estimated at 16 mmHg. There is evidence that pulmonary hypertension may be underestimated. There is no tricuspid stenosis. Pulmonic Valve: The pulmonic valve appears normal. There is trace to mild pulmonic regurgitation. There is no pulmonic stenosis. Pericardium: There is no significant pericardial effusion. Aorta: There is no dilatation of the ascending aorta. The aortic arch is not well visualized. There is mild dilatation of the aortic root. Pulmonary Artery: The main pulmonary artery is not well visualized. Venous: The inferior vena cava appears normal in size. There is a greater than 50% respiratory change in the inferior vena cava dimension. Conclusions There is no left ventricular hypertrophy. There is normal left ventricular systolic function (cannot see the low posterolateral wall well enough to rule out subtle hypokinesis). The estimated ejection fraction is 55-60%. Visually estimated LVEF is 55 %. The right ventricle is mildly dilated. There is trace to mild aortic regurgitation. The mitral valve leaflets are moderately thickened. There is mild mitral valve prolapse. There is mild mitral regurgitation. There is trace to mild tricuspid regurgitation. There is trace to mild pulmonic regurgitation. There is mild dilatation of the aortic root. No reports of prior studies are offered for comparison. Measurements Name Value Normal Range RVIDd (AP) 2D 2.6 cm (0.9 - 2.6) RVDdMajor (2D) 4.5 cm (2.2 - 4.4) RAd ISD 4CH 4.3 cm (3.4 - 4.9) RA (A4C)W 3.9 cm (2.9 - 4.6) IVSd (2D) 0.9 cm (0.6 - 1) LVPWd (2D) 0.8 cm (0.6 - 1) LVIDd (2D) 4.4 cm (3.6 - 5.4) LVIDs (2D) 2.8 cm - LV FS (2D) 37 % (25 - 45) Aortic Annulus 2.1 cm (1.4 - 2.6) Ao root diameter (2D) 3.7 cm (2.1 - 3.5) Ascending Ao 3.3 cm (2.1 - 3.4) LA dimension (AP) 2D 3.3 cm (2.3 - 3.8) LAd ISD 4CH 4.2 cm (2.9 - 5.3) LA ISD 4CH W 4.2 cm (2.5 - 4.5) Name Value Normal Range LA ESV SP 4CH (A/L) 38 ml - LA ESV SP 2CH (A/L) 64 ml - LA ESV BP (A/L) 55 ml - LA ESV BP (A/L) index 31.44 ml/m2 - LA ESV SP 4CH (MOD) 30 ml - LA ESV SP 2CH (MOD) 58 ml - Name Value Normal Range MV E-wave Vmax 0.86 m/sec - MV deceleration time 267.26 msec - MV A-wave Vmax 0.76 m/sec - MV E:A ratio 1.13 ratio - LV septal e' Vmax 0.07 m/sec - LV lateral e' Vmax 0.05 m/sec - LV E:e' septal ratio 12.29 ratio - LV E:e' lateral ratio 17.2 ratio - Name Value Normal Range AV Vmax 1.16 m/sec - AV VTI 22.44 cm - AV peak gradient 5.41 mmHg - AV mean gradient 3.1 mmHg - LVOT Vmax 0.96 m/sec - LVOT VTI 17.09 cm - LVOT peak gradient 3.71 mmHg - LVOT mean gradient 2.07 mmHg - Name Value Normal Range TR Vmax 1.8 m/sec - TR peak gradient 13 mmHg - RAP 3 mmHg - RVSP 16 mmHg - IVC diameter 1.5 cm - Name Value Normal Range PV Vmax 0.72 m/sec - PV peak gradient 2.08 mmHg -
[2016-11-14 12:42] VITALS: BP 114/68
--- NOTE | 2016-11-15 01:52 | DS ---
CC: [facility]* DISCHARGE SUMMARY: DATE OF ADMISSION: 11/13/2016. DATE OF DISCHARGE: 11/14/2016. PRIMARY CARE PROVIDER: [facility]. It was previously Dr. Schmid, who has retired. MEDICATIONS ON DISCHARGE: Unchanged from admission except for addition of diltiazem 30 mg twice daily and include additionally: 1. Pepto-Bismol 10 mL every 4 hours as needed. 2. Guiatuss 100 mg every 4 hours as needed. 3. Triamcinolone cream 0.1% topically twice daily as needed. 4. Acetaminophen 650 mg every 4 hours as needed for pain or fever. 5. Ketoconazole 2% topically daily. 6. Ibuprofen 200 to 400 mg every 6 hours as needed for pain. 7. Eye drops as needed both eyes twice daily. 8. Artificial tears 1 drop both eyes daily. PERTINENT LABORATORY DATA: Cholesterol 135, LDL 83, HDL 31. TSH 3.13. BNP 47. Urine benign. PERTINENT IMAGING STUDIES: Transthoracic echocardiogram, impression: No left ventricular hypertrophy. Normal left ventricular systolic function, but cannot see the low posterior wall well enough to rule out subtle hypokinesis. Estimated LVEF 55% to 60%. The right ventricle is mildly dilated. Trace-to- mild aortic regurgitation. Mitral valve leaflets are moderately thickened. Mild mitral valve prolapse. Mild mitral regurgitation. [id number] tricuspid regurgitation. Bsxag-zh-rbtf pulmonic regurgitation. There is mild elevation in the aortic root. HISTORY OF PRESENT ILLNESS AND HOSPITAL COURSE: This is a 56-year-old man, past medical history as outlined in history of present illness on the day of admission, presented to the hospital after being found with newly diagnosed atrial fibrillation, rapid ventricular response, at primary care provider's office. In the emergency room, he received two 20 mg IV doses of diltiazem with control of his rate from 150 down to the 60s. He was started concomitantly on oral diltiazem 30 mg every 6 hours and he spontaneously cardioverted to normal sinus rhythm before midnight. He received 3 doses of diltiazem oral for a total of 90 mg during the course of this stay. He was discharged on 30 mg twice daily. His CHADS-VASc score is at low risk and therefore will not be started on oral anticoagulation. He did receive 1 dose of Xarelto prior to his transthoracic echocardiogram being completed. Results of his testing and changes to his medications were communicated with his father prior to his discharge. There are no complications during the course of this hospital stay. FOLLOWUP INSTRUCTIONS: At followup, please: 1. Evaluate blood pressure and heart rate control on dose of diltiazem. Adjust as necessary. 2. No other specific labs or vitals that need followup. TIME SPENT: Greater than 45 minutes was spent on discharge of the patient of which greater than half was spent [id number] with the patient. [id number]/[facility] #: [id number] LESVIA
== END 2016-11-14 14:40 ==
LOC: ED 17:00 → MEDTELE 18:50
PROVIDERS: ADMIT Internal Medicine; ATTEND Internal Medicine
DX: I48.91 Unspecified atrial fibrillation (principal); R53.83 Other fatigue; R53.1 Weakness; R05 Cough; I35.1 Nonrheumatic aortic (valve) insufficiency; I34.0 Nonrheumatic mitral (valve) insufficiency; I36.1 Nonrheumatic tricuspid (valve) insufficiency; I37.1 Nonrheumatic pulmonary valve insufficiency; Z79.899 Other long term (current) drug therapy
CPT/HCPCS: 36415; 71010; 80053; 80061; 81003; 82553; 83735; 83880; 84443; 84484; 85025; 85730; 93005; 93306; 96365; 96375; 99285; A9270-GY; G0378